=== PATIENT | male | born 1985 | race Caucasian/White ===

== ENCOUNTER 2021-01-13 19:51 | Inpatient (IN) | payer OTHER ==
[~2021-01-13] VITALS: Ht 170.2 cm; Wt 222.3 kg
[~2021-01-13 19:51] MED LIST: ASPIRIN EC81 MG PO; CEFUROXIME500 MG PO; CIPRO500 MG PO; CLARITIN10 M2 PO; CYCLOBENZAPRINE10 MG PO; DIAMOX 250 MG250 MG PO; K-TAB ER10 MEQ PO; LANTUS SOL100 UNIT/1 SQ; LASIX 40 MG TAB40 MG PO; LASIX40 MG PO; LEVOFLOXACIN500 MG PO; NEURONTIN100 MG PO; NOVOLOG FL100 UNIT/1 SQ; NYSTOP60 GM TOP; SIMVASTATIN20 MG PO; TRAMADOL HCL50 MG PO; VENTOLIN HFA 66.7 GM INH; ZESTRIL/PRINIVI10 MG PO; ZOLOFT100 MG PO
[2021-01-13 21:15] LABS: RED BLOOD COUNT 5.35 M/UL (4.20-5.50); WHITE BLOOD COUNT 12.8 K/UL (4.5-11.0)
[2021-01-13 21:56] LABS: BUN/CREATININE RATIO 34 (0-10)
[2021-01-14] MEDS ORDERED: MELOXICAM15 MG PO (01:08)
[2021-01-14] MEDS ORDERED: FLONASE 0.05% N16 GM (01:09)
[2021-01-14] MEDS ORDERED: IPRAT-ALBUT 0.5-3 ML INH (01:13)
[2021-01-14 05:10] LABS: HEMOGLOBIN 14.8 gm/dl (14.0-17.5); RED BLOOD COUNT 4.94 M/UL (4.20-5.50)
[2021-01-14 05:25] LABS: BUN/CREATININE RATIO 37 (0-10)
[2021-01-15 04:08] LABS: HEMOGLOBIN 13.5 gm/dl (14.0-17.5); RED BLOOD COUNT 4.63 M/UL (4.20-5.50); WHITE BLOOD COUNT 12.5 K/UL (4.5-11.0)
[2021-01-15 04:16] LABS: BUN/CREATININE RATIO 38 (0-10)
[2021-01-16 04:22] LABS: HEMOGLOBIN 14.9 gm/dl (14.0-17.5); RED BLOOD COUNT 5.02 M/UL (4.20-5.50); WHITE BLOOD COUNT 10.4 K/UL (4.5-11.0)
[2021-01-16 04:41] LABS: BUN/CREATININE RATIO 38 (0-10)
[2021-01-17 01:48] LABS: HEMOGLOBIN 16.3 gm/dl (14.0-17.5); RED BLOOD COUNT 5.39 M/UL (4.20-5.50); WHITE BLOOD COUNT 9.9 K/UL (4.5-11.0)
[2021-01-17 02:06] LABS: BUN/CREATININE RATIO 31 (0-10)
--- NOTE | 2021-01-17 03:15 | NUR ---
PATIENT DENIES CP AT THIS TIME. HE STILL REFUSES TO WEAR BIPAP. REINFORCED IMPORTANCE AGAIN TO PATIENT WITH GOOD UNDERSTANDING. HE IS AGREEABLE TO WEAR THE BIPAP.
[2021-01-18 04:26] LABS: BUN/CREATININE RATIO 44 (0-10)
[2021-01-18 14:56] LABS: HEMOGLOBIN 17.5 gm/dl (14.0-17.5)
--- NOTE | 2021-01-19 09:23 | NUR ---
SPOKE FACE TO FACE SEVERAL TIMES TODAY WT DR NORTON ABOUT PATIENTS LOW BLOOD PRESSURE. EARLY IN THE AM I BROUGHT SEVERAL OF THE PATIENTS MEDICATIONS TO THE DOCTORS ATTENTION. THOSE MEDICATIONS WERE CHANGED OR D/C PER DOCTORS ORDER. LATER WHEN PATIENT STILL HAD LOW BLOOD PRESSURE I AGAIN SPOKE WITH DR NORTON WHO ORDERED A 500 ML BOLUS. BOLUS WAS GIVEN WITH LITTLE EFFECT ON PATIENTS BLOOD PRESSURE. AGAIN DOCTOR MICHAEL WAS NOTIFIED ABOUT PATIENTS CONTINUED LOW BLOOD PRESSURE AND A 1000 ML BOLUS WAS ORDERED ONCE. BOLUS WAS STARTED AND PATIENT RESPOSNSE WAS GOOD, STATING THAT IV HURT WHEN THE FLUIDS WERE STARTED,BUT THAT IT STOPED AND THE IV WAS FINE. THERE WAS NO REDNESS OR SWELLING AT THE SIGHT WHEN THE BOLUS WAS STARTED.
[2021-01-19 18:01] LABS: WHITE BLOOD COUNT 11.3 K/UL (4.5-11.0)
[2021-01-19 18:12] LABS: HEMOGLOBIN 12.8 gm/dl (14.0-17.5); RED BLOOD COUNT 4.34 M/UL (4.20-5.50)
--- NOTE | 2021-01-19 20:10 | NUR ---
UPON ASSESSMENT, PT NEEDED NEW IV ACCESS AND PER TECH BP WAS 60/39. WITH MANUAL BP CUFF, BP DETERMINED TO BE 70/42. DR. NORTON WAS ON FLOOR. MD WAS APPROACHED WITH BP. MD WENT TO ASSESS PT. NEW IV ACCESS OBTAINED TO [facility], SEE CHARTING FOR MORE INFO. BOLUS STARTED VIA MD ORDERS. WCTM
[2021-01-20 04:43] LABS: WHITE BLOOD COUNT 13.9 K/UL (4.5-11.0)
[2021-01-20 04:50] LABS: HEMOGLOBIN 14.9 gm/dl (14.0-17.5); RED BLOOD COUNT 4.97 M/UL (4.20-5.50)
--- NOTE | 2021-01-20 05:32 | NUR ---
PT DID NOT HAVE MUCH UO, THEREFORE PRIMARY RN BLADDER SCANNED PT. PT WAS ASSESSED TO ONLY HAVING 108 ML VIA SCAN. WCTM
[2021-01-21 05:41] LABS: HEMOGLOBIN 14.8 gm/dl (14.0-17.5); RED BLOOD COUNT 4.94 M/UL (4.20-5.50); WHITE BLOOD COUNT 8.7 K/UL (4.5-11.0)
[2021-01-21 06:05] LABS: BUN/CREATININE RATIO 60 (0-10)
--- NOTE | 2021-01-21 17:38 | NUR ---
PATIENT LOST HIS IV IT WAS LEAKING AT 1400. AN ATTEMPT WAS MADE IN THE AM BY THE CHARGE NURSE TO START A NEW IV THE PRIMARY NURSE HAD REQUESTED A NEW IV BE STARTED BEFORE THE IV IN THE RIGHT UPPER ARM STOPPED WORKING. RESOURCE NURSE WAS CONTACTED TO PLACE AN IV THE PATIENT IS A DIFFICULT STICK. THE UPPER ARM IV WAS STILL FLUSHING AND GETTING GOOD RETURN. CHARGE NURSE DECIDED TO WAIT UNTIL THE IV ACTUALLY COULD NO LONGER BE USED. CHARGE NURSE HAS BEEN CONTACTED BY PHONE TWICE BY THE PRIMARY NURSE SINCE 1400 STATING SHE WOULD COME AND TRY TO PLACE AN IV WHEN SHE HAD TIME. PRIMARY NURSE MADE THREE UNSUCCESSFUL ATTEMPTS AT STARTING A NEW IV.
[2021-01-22 08:48] LABS: BUN/CREATININE RATIO 41 (0-10)
[2021-01-22] MEDS ORDERED: CEFUROXIME250 MG PO (13:07)
== END 2021-01-22 16:52 | disposition home or self-care (01) | DRG 291 ==
LOC: ER1 19:51 → CDU 01-14 00:32 → MED SURG 4 01-14 00:32 → PROG CARE 01-14 23:15 → MED SURG 4 01-15 15:27
PROVIDERS: Family Medicine; Internal Medicine; Internal Medicine Nephrology; ADMIT Internal Medicine
PROC: B24BZZZ Ultrasonography of Heart with Aorta (ICD-10-PCS; principal; 2021-01-15)
DX: I11.0 Hypertensive heart disease with heart failure (principal); J96.22 Acute and chronic respiratory failure with hypercapnia; J96.21 Acute and chronic respiratory failure with hypoxia; J18.9 Pneumonia, unspecified organism; E66.2 Morbid (severe) obesity with alveolar hypoventilation; Z68.45 Body mass index [BMI] 70 or greater, adult; N17.9 Acute kidney failure, unspecified; E87.1 Hypo-osmolality and hyponatremia; E87.2 Acidosis; E87.3 Alkalosis; Z20.822 Contact with and (suspected) exposure to COVID-19; I50.33 Acute on chronic diastolic (congestive) heart failure; I27.20 Pulmonary hypertension, unspecified; I95.9 Hypotension, unspecified; G89.4 Chronic pain syndrome; F41.9 Anxiety disorder, unspecified; E78.5 Hyperlipidemia, unspecified; E11.40 Type 2 diabetes mellitus with diabetic neuropathy, unspecified; K80.20 Calculus of gallbladder without cholecystitis without obstruction; F32.9 Major depressive disorder, single episode, unspecified; Z91.013 Allergy to seafood; Z99.81 Dependence on supplemental oxygen; Z83.3 Family history of diabetes mellitus; Z82.49 Family history of ischemic heart disease and other diseases of the circulatory system; Z88.8 Allergy status to other drugs, medicaments and biological substances; Z79.82 Long term (current) use of aspirin; Z79.4 Long term (current) use of insulin; Z79.899 Other long term (current) drug therapy
CPT/HCPCS: ECHO; 36415; 36600; 71045; 80048; 80053; 80202; 81001; 82533; 82550; 82553; 82570; 82803; 82962; 83605; 83735; 83880; 84133; 84156; 84300; 84484; 85014; 85018; 85025; 85027; 85610; 87040; 87086; 90471; 93005; 93306; 93880; 94640; 94660; 94760; 96365; 96366; 96368; 96372; 96375; 96376; 97116-GP-CQ; 97162; 97530-GP-CQ; 99285; G0378; J0696; J1120; J1650; J1940; J2185; J2543; J2930; J3370; J7030; J7070; U0002

== ENCOUNTER → 2021-02-20 | Outpatient (CLI) | payer OTHER ==
[~2021-02-20] MED LIST changes: +CEFUROXIME250 MG PO; +FLONASE 0.05% N16 GM; +IPRAT-ALBUT 0.5-3 ML INH; +MELOXICAM15 MG PO
[2021-02-20 13:03] LABS: BUN/CREATININE RATIO 31 (0-10)
== END ==
LOC: LAB 12:04
PROVIDERS: Internal Medicine Pulmonary Disease
DX: I50.30 Unspecified diastolic (congestive) heart failure (principal); J96.92 Respiratory failure, unspecified with hypercapnia
CPT/HCPCS: 36415; 36600; 71046; 80053; 82803

== ENCOUNTER 2021-08-25 15:19 | Inpatient (IN) | payer MEDICARE, OTHER ==
[~2021-08-25] VITALS: Ht 182.9 cm; Wt 190.5 kg
[~2021-08-25 15:19] MED LIST changes: -LANTUS SOL100 UNIT/1 SQ; -NOVOLOG FL100 UNIT/1 SQ
[2021-08-25 16:29] LABS: HEMOGLOBIN 13.7 gm/dl (14.0-17.5); RED BLOOD COUNT 4.66 M/UL (4.20-5.50); WHITE BLOOD COUNT 10.1 K/UL (4.5-11.0)
[2021-08-25 16:48] LABS: BUN/CREATININE RATIO 17 (0-10)
[2021-08-26 04:06] LABS: HEMOGLOBIN 12.7 gm/dl (14.0-17.5); RED BLOOD COUNT 4.35 M/UL (4.20-5.50)
[2021-08-26 04:29] LABS: BUN/CREATININE RATIO 23 (0-10)
[2021-08-26] MEDS ORDERED: FUROSEMIDE20 MG PO (10:24)
[2021-08-26] MEDS ORDERED: CLARITIN 10MG T10 MG PO (10:31)
[2021-08-26] MEDS ORDERED: BASAGLAR K100 UNIT/1 SQ (19:00)
[2021-08-26] MEDS ORDERED: ADMELOG SO100 UNIT/1 SQ (19:01)
[2021-08-27 07:06] LABS: BUN/CREATININE RATIO 22 (0-10)
[2021-08-27] MEDS ORDERED: ACETAZOLAMIDE250 MG PO (09:42)
[2021-08-27] MEDS ORDERED: BASAGLAR K100 UNIT/1 SQ (09:42)
[2021-08-27] MEDS ORDERED: ZESTRIL/PRINIVI10 MG PO (09:42)
== END 2021-08-27 15:37 | disposition home or self-care (01) | DRG 291 ==
LOC: ER1 15:19 → CDU 17:55 → M/S 17:55
PROVIDERS: Physician Assistant; Physician Assistant Medical; ADMIT Internal Medicine
PROC: 5A09457 Assistance with Respiratory Ventilation, 24-96 Consecutive Hours, Continuous Positive Airway Pressure (ICD-10-PCS; principal; 2021-08-25)
DX: I11.0 Hypertensive heart disease with heart failure (principal); J96.21 Acute and chronic respiratory failure with hypoxia; Z20.822 Contact with and (suspected) exposure to COVID-19; J96.22 Acute and chronic respiratory failure with hypercapnia; G93.41 Metabolic encephalopathy; E87.4 Mixed disorder of acid-base balance; E66.2 Morbid (severe) obesity with alveolar hypoventilation; Z68.41 Body mass index [BMI] 40.0-44.9, adult; E11.9 Type 2 diabetes mellitus without complications; I50.9 Heart failure, unspecified; E78.5 Hyperlipidemia, unspecified; E11.65 Type 2 diabetes mellitus with hyperglycemia; Z79.4 Long term (current) use of insulin; Z91.14 Patient's other noncompliance with medication regimen; Z79.82 Long term (current) use of aspirin; Z91.041 Radiographic dye allergy status; Z88.5 Allergy status to narcotic agent; Z91.013 Allergy to seafood; Z83.3 Family history of diabetes mellitus; Z80.9 Family history of malignant neoplasm, unspecified
CPT/HCPCS: 36600; 71045; 80048; 80053; 82550; 82553; 82803; 82962; 83874; 83880; 84439; 84443; 84484; 85025; 93005; 94640; 94660; 94760; 96374; 97161; 99285; J1120; J1650; J1940; U0002

== ENCOUNTER 2022-01-04 12:49 | Inpatient (IN) | payer MEDICARE, OTHER ==
[~2022-01-04] VITALS: Ht 170.2 cm; Wt 190.5 kg
[~2022-01-04 12:49] MED LIST changes: +ACETAZOLAMIDE250 MG PO; +ADMELOG SO100 UNIT/1 SQ; +BASAGLAR K100 UNIT/1 SQ; +CLARITIN 10MG T10 MG PO; +FUROSEMIDE20 MG PO
[2022-01-04 13:31] LABS: HEMOGLOBIN 13.7 gm/dl (14.0-17.5); RED BLOOD COUNT 4.58 M/UL (4.20-5.50); WHITE BLOOD COUNT 10.3 K/UL (4.5-11.0)
[2022-01-04 14:09] LABS: BUN/CREATININE RATIO 26 (0-10)
[2022-01-05 05:53] LABS: HEMOGLOBIN 13.8 gm/dl (14.0-17.5); RED BLOOD COUNT 4.72 M/UL (4.20-5.50); WHITE BLOOD COUNT 7.9 K/UL (4.5-11.0)
[2022-01-05 06:08] LABS: BUN/CREATININE RATIO 28 (0-10)
[2022-01-05] MEDS ORDERED: LISINOPRIL10 MG PO (10:33)
[2022-01-05] MEDS ORDERED: BASAGLAR K100 UNIT/1 SQ (10:33)
[2022-01-05] MEDS ORDERED: MELOXICAM15 MG PO (10:35)
[2022-01-06 04:48] LABS: HEMOGLOBIN 13.9 gm/dl (14.0-17.5); RED BLOOD COUNT 4.81 M/UL (4.20-5.50)
[2022-01-06 04:50] LABS: WHITE BLOOD COUNT 14.5 K/UL (4.5-11.0)
[2022-01-06 05:12] LABS: BUN/CREATININE RATIO 38 (0-10)
[2022-01-06 12:16] LABS: ORGANISM ID Not indicated. (.); SPECIMEN SOURCE Urine (.); STREPTOCOCCUS PNEUMONIAE AG Negative (Negative)
[2022-01-07 03:16] LABS: HEMOGLOBIN 14.7 gm/dl (14.0-17.5); RED BLOOD COUNT 5.16 M/UL (4.20-5.50)
[2022-01-07 03:20] LABS: WHITE BLOOD COUNT 10.6 K/UL (4.5-11.0)
[2022-01-07 03:29] LABS: BUN/CREATININE RATIO 42 (0-10)
[2022-01-07] MEDS ORDERED: DIAMOX 250 MG250 MG PO (09:23)
[2022-01-07] MEDS ORDERED: LEVOFLOXACIN500 MG PO (09:23)
[2022-01-07] MEDS ORDERED: BUDESONIDE0.5 MG/2 M NEB (09:23)
[2022-01-07] MEDS ORDERED: FERROUS SULFAT325 M2 PO (09:28)
== END 2022-01-07 16:23 | disposition home or self-care (01) | DRG 291 ==
LOC: ER1 12:49 → CDU 15:11 → PROG CARE 01-06 15:37
PROVIDERS: Emergency Medicine; Internal Medicine; ADMIT Internal Medicine
PROC: 5A09457 Assistance with Respiratory Ventilation, 24-96 Consecutive Hours, Continuous Positive Airway Pressure (ICD-10-PCS; principal; 2022-01-04)
PROC: 3E033XZ Introduction of Vasopressor into Peripheral Vein, Percutaneous Approach (ICD-10-PCS; 2022-01-06)
PROC: B24BZZZ Ultrasonography of Heart with Aorta (ICD-10-PCS; 2022-01-06)
DX: I11.0 Hypertensive heart disease with heart failure (principal); J96.21 Acute and chronic respiratory failure with hypoxia; J96.22 Acute and chronic respiratory failure with hypercapnia; I50.33 Acute on chronic diastolic (congestive) heart failure; J18.9 Pneumonia, unspecified organism; J44.1 Chronic obstructive pulmonary disease with (acute) exacerbation; E66.2 Morbid (severe) obesity with alveolar hypoventilation; J44.0 Chronic obstructive pulmonary disease with (acute) lower respiratory infection; N39.0 Urinary tract infection, site not specified; Z68.41 Body mass index [BMI] 40.0-44.9, adult; Z20.822 Contact with and (suspected) exposure to COVID-19; E78.5 Hyperlipidemia, unspecified; G89.4 Chronic pain syndrome; E11.65 Type 2 diabetes mellitus with hyperglycemia; F41.9 Anxiety disorder, unspecified; F32.A Depression, unspecified; Z96.652 Presence of left artificial knee joint; D50.9 Iron deficiency anemia, unspecified; Z90.89 Acquired absence of other organs; Z99.81 Dependence on supplemental oxygen; Z91.013 Allergy to seafood; Z91.041 Radiographic dye allergy status; Z83.3 Family history of diabetes mellitus; Z79.899 Other long term (current) drug therapy; Z79.82 Long term (current) use of aspirin; Z91.14 Patient's other noncompliance with medication regimen; Z79.4 Long term (current) use of insulin
CPT/HCPCS: ECHO; 36415; 36600; 71045; 80053; 81001; 82550; 82553; 82803; 82962; 83036; 83540; 83550; 83605; 83735; 83874; 83880; 84100; 84484; 85025; 85027; 85652; 86140; 87040; 87086; 87278; 87899; 93005; 93306; 94640; 94660; 94664; 94760; 96372; 96374; 96375; 96376; 99285; J0696; J1120; J1650; J1756; J1940; J1956; J2930; J3475; Q9957; U0002

== ENCOUNTER 2022-03-02 12:51 | Inpatient (IN) | payer MEDICARE, OTHER ==
[~2022-03-02] VITALS: Ht 165.1 cm; Wt 204.1 kg
[~2022-03-02 12:51] MED LIST changes: +BUDESONIDE0.5 MG/2 M NEB; +FERROUS SULFAT325 M2 PO; -FUROSEMIDE20 MG PO; +FUROSEMIDE40 MG PO; +LISINOPRIL10 MG PO
[2022-03-02 13:34] LABS: HEMOGLOBIN 15.6 gm/dl (14.0-17.5); RED BLOOD COUNT 5.19 M/UL (4.20-5.50)
[2022-03-02 13:54] LABS: BUN/CREATININE RATIO 23 (0-10)
[2022-03-02] MEDS ORDERED: ACETAZOLAMIDE500 MG PO (16:32)
[2022-03-02] MEDS ORDERED: LISINOPRIL10 MG PO (16:38)
[2022-03-03 05:07] LABS: HEMOGLOBIN 13.8 gm/dl (14.0-17.5); RED BLOOD COUNT 4.68 M/UL (4.20-5.50); WHITE BLOOD COUNT 12.3 K/UL (4.5-11.0)
[2022-03-03 06:05] LABS: BUN/CREATININE RATIO 23 (0-10)
[2022-03-04 03:33] LABS: HEMOGLOBIN 12.9 gm/dl (14.0-17.5); RED BLOOD COUNT 4.48 M/UL (4.20-5.50); WHITE BLOOD COUNT 10.7 K/UL (4.5-11.0)
[2022-03-04 05:53] LABS: BUN/CREATININE RATIO 27 (0-10)
[2022-03-05 03:42] LABS: HEMOGLOBIN 13.5 gm/dl (14.0-17.5); RED BLOOD COUNT 4.66 M/UL (4.20-5.50); WHITE BLOOD COUNT 10.3 K/UL (4.5-11.0)
[2022-03-05 04:10] LABS: BUN/CREATININE RATIO 31 (0-10)
[2022-03-06 07:27] LABS: HEMOGLOBIN 12.6 gm/dl (14.0-17.5); RED BLOOD COUNT 4.52 M/UL (4.20-5.50); WHITE BLOOD COUNT 8.9 K/UL (4.5-11.0)
[2022-03-06 07:49] LABS: BUN/CREATININE RATIO 38 (0-10)
[2022-03-07 05:57] LABS: HEMOGLOBIN 13.1 gm/dl (14.0-17.5); RED BLOOD COUNT 4.47 M/UL (4.20-5.50); WHITE BLOOD COUNT 10.2 K/UL (4.5-11.0)
[2022-03-07 06:20] LABS: BUN/CREATININE RATIO 42 (0-10)
[2022-03-07] MEDS ORDERED: LOPRESSOR 25 MG25 MG PO (12:48)
== END 2022-03-07 14:16 | disposition home or self-care (01) | DRG 291 ==
LOC: ER1 12:51 → CDU 14:41 → M/S 14:41 → CCU 14:41 → M/S 03-03 23:13
PROVIDERS: Emergency Medicine; Physician Assistant; ADMIT Internal Medicine
PROC: 5A09557 Assistance with Respiratory Ventilation, Greater than 96 Consecutive Hours, Continuous Positive Airway Pressure (ICD-10-PCS; principal; 2022-03-02)
DX: I11.0 Hypertensive heart disease with heart failure (principal); J18.9 Pneumonia, unspecified organism; J96.22 Acute and chronic respiratory failure with hypercapnia; Z20.822 Contact with and (suspected) exposure to COVID-19; J96.21 Acute and chronic respiratory failure with hypoxia; I50.33 Acute on chronic diastolic (congestive) heart failure; E66.2 Morbid (severe) obesity with alveolar hypoventilation; E87.3 Alkalosis; E87.2 Acidosis; Z68.45 Body mass index [BMI] 70 or greater, adult; K59.00 Constipation, unspecified; Z96.652 Presence of left artificial knee joint; G89.4 Chronic pain syndrome; F41.9 Anxiety disorder, unspecified; F32.A Depression, unspecified; E11.65 Type 2 diabetes mellitus with hyperglycemia; E78.5 Hyperlipidemia, unspecified; T50.2X5A Adverse effect of carbonic-anhydrase inhibitors, benzothiadiazides and other diuretics, initial encounter; Z99.81 Dependence on supplemental oxygen; Z90.89 Acquired absence of other organs; Z79.4 Long term (current) use of insulin; Z91.013 Allergy to seafood; Z91.041 Radiographic dye allergy status; Z83.3 Family history of diabetes mellitus; Z82.49 Family history of ischemic heart disease and other diseases of the circulatory system; Z79.82 Long term (current) use of aspirin; Z79.899 Other long term (current) drug therapy
CPT/HCPCS: 0240U; 36415; 36600; 71045; 80048; 80053; 80202; 82009; 82550; 82553; 82803; 82962; 83735; 83880; 84484; 85025; 93005; 94660; 94760; 96374; 96375; 97110; 97116-GP-CQ; 97161; 97165; 97535; 99285; J0692; J0696; J1120; J1650; J1940; J3370; J7070

== ENCOUNTER 2022-03-29 15:40 | Inpatient (IN) | payer MEDICARE, OTHER ==
[~2022-03-29] VITALS: Ht 165.1 cm; Wt 194.4 kg
[~2022-03-29 15:40] MED LIST changes: +ACETAZOLAMIDE500 MG PO; +FUROSEMIDE20 MG PO; -FUROSEMIDE40 MG PO; +LOPRESSOR 25 MG25 MG PO
[2022-03-29 16:07] LABS: HEMOGLOBIN 13.8 gm/dl (14.0-17.5); RED BLOOD COUNT 4.7 M/UL (4.20-5.50); WHITE BLOOD COUNT 10.8 K/UL (4.5-11.0)
[2022-03-29 16:42] LABS: BUN/CREATININE RATIO 30 (0-10)
[2022-03-30 05:12] LABS: HEMOGLOBIN 12.4 gm/dl (14.0-17.5); RED BLOOD COUNT 4.34 M/UL (4.20-5.50)
[2022-03-30 05:22] LABS: WHITE BLOOD COUNT 7.4 K/UL (4.5-11.0)
[2022-03-30 05:53] LABS: BUN/CREATININE RATIO 31 (0-10)
[2022-03-30] MEDS ORDERED: LORATADINE10 MG PO (09:50)
[2022-03-30] MEDS ORDERED: SIMVASTATIN20 MG PO (09:50)
[2022-03-30] MEDS ORDERED: HUMALOG100 UNIT/3 SQ (09:51)
[2022-03-30] MEDS ORDERED: LANTUS SOL100 UNIT/1 SQ (09:51)
[2022-03-31 05:13] LABS: HEMOGLOBIN 12.2 gm/dl (14.0-17.5); RED BLOOD COUNT 4.26 M/UL (4.20-5.50)
[2022-03-31 05:42] LABS: WHITE BLOOD COUNT 9.8 K/UL (4.5-11.0)
[2022-03-31 05:44] LABS: BUN/CREATININE RATIO 33 (0-10)
[2022-04-01 02:27] LABS: HEMOGLOBIN 12.3 gm/dl (14.0-17.5); RED BLOOD COUNT 4.32 M/UL (4.20-5.50); WHITE BLOOD COUNT 7.7 K/UL (4.5-11.0)
[2022-04-01 02:53] LABS: BUN/CREATININE RATIO 40 (0-10)
[2022-04-02 02:14] LABS: BUN/CREATININE RATIO 33 (0-10)
[2022-04-03 03:04] LABS: BUN/CREATININE RATIO 36 (0-10)
[2022-04-03] MEDS ORDERED: LEVALBUTER0.63 MG/3 NEB (10:02)
[2022-04-03] MEDS ORDERED: FERROUS SULFAT325 M2 PO (10:02)
[2022-04-03] MEDS ORDERED: KLOR-CON20 MEQ PO (10:02)
== END 2022-04-03 12:09 | disposition home or self-care (01) | DRG 291 ==
LOC: ER1 15:40 → CDU 22:18 → CCU 22:18 → PROG CARE 03-31 14:39
PROVIDERS: Emergency Medicine; Internal Medicine; ADMIT Internal Medicine
PROC: 5A09357 Assistance with Respiratory Ventilation, Less than 24 Consecutive Hours, Continuous Positive Airway Pressure (ICD-10-PCS; principal; 2022-03-29)
PROC: 5A0935A Assistance with Respiratory Ventilation, Less than 24 Consecutive Hours, High Flow/Velocity Cannula (ICD-10-PCS; 2022-03-30)
PROC: 5A09357 Assistance with Respiratory Ventilation, Less than 24 Consecutive Hours, Continuous Positive Airway Pressure (ICD-10-PCS; 2022-03-30)
PROC: 5A0935A Assistance with Respiratory Ventilation, Less than 24 Consecutive Hours, High Flow/Velocity Cannula (ICD-10-PCS; 2022-03-31)
PROC: 5A09357 Assistance with Respiratory Ventilation, Less than 24 Consecutive Hours, Continuous Positive Airway Pressure (ICD-10-PCS; 2022-04-01)
PROC: 5A0935A Assistance with Respiratory Ventilation, Less than 24 Consecutive Hours, High Flow/Velocity Cannula (ICD-10-PCS; 2022-04-01)
PROC: 5A09357 Assistance with Respiratory Ventilation, Less than 24 Consecutive Hours, Continuous Positive Airway Pressure (ICD-10-PCS; 2022-04-02)
PROC: 5A0935A Assistance with Respiratory Ventilation, Less than 24 Consecutive Hours, High Flow/Velocity Cannula (ICD-10-PCS; 2022-04-02)
PROC: 5A09357 Assistance with Respiratory Ventilation, Less than 24 Consecutive Hours, Continuous Positive Airway Pressure (ICD-10-PCS; 2022-04-03)
DX: I11.0 Hypertensive heart disease with heart failure (principal); J96.21 Acute and chronic respiratory failure with hypoxia; I50.31 Acute diastolic (congestive) heart failure; Z20.822 Contact with and (suspected) exposure to COVID-19; J96.22 Acute and chronic respiratory failure with hypercapnia; E87.3 Alkalosis; E66.2 Morbid (severe) obesity with alveolar hypoventilation; J45.901 Unspecified asthma with (acute) exacerbation; Z68.45 Body mass index [BMI] 70 or greater, adult; G89.4 Chronic pain syndrome; F41.9 Anxiety disorder, unspecified; F32.A Depression, unspecified; I49.3 Ventricular premature depolarization; D64.9 Anemia, unspecified; E87.5 Hyperkalemia; I87.8 Other specified disorders of veins; E11.9 Type 2 diabetes mellitus without complications; I27.20 Pulmonary hypertension, unspecified; Z91.013 Allergy to seafood; Z79.4 Long term (current) use of insulin; Z99.81 Dependence on supplemental oxygen; Z98.890 Other specified postprocedural states; Z83.3 Family history of diabetes mellitus; Z91.041 Radiographic dye allergy status; Z88.5 Allergy status to narcotic agent; R53.81 Other malaise
CPT/HCPCS: 36415; 36600; 71045; 80048; 80053; 82550; 82553; 82803; 82962; 83605; 83735; 83880; 84132; 84484; 85025; 85610; 85730; 87040; 93005; 94640; 94660; 94664; 94760; 96374; 96375; 97162; 97166; 97530; 97530-GP-CQ; 97535; 99285; G0378; J1650; J1940; J2930; U0002